=== PATIENT | female | born 1935 | race Hispanic/Latino ===

== ENCOUNTER 2017-09-16 08:48 | Emergency (ER) | payer MEDICARE, OTHER ==
[~2017-09-16 08:48] MED LIST: ESOM40CA PO; FOLI0.8T22 PO; LEVO112T7 PO; VALP250S13 PO
[2018-01-24] MEDS ORDERED: VALP250C3 PO (12:39)
[2018-01-24] MEDS ORDERED: FOLI1TAB85 PO (12:39)
[2018-01-24] MEDS ORDERED: MIDO10TA PO (12:40)
[2018-01-24] MEDS ORDERED: OMEP40CA37 PO (12:40)
== END 2017-09-16 10:55 | disposition home or self-care (01) ==
LOC: EDH 08:48
DX: S52.592A Other fractures of lower end of left radius, initial encounter for closed fracture (principal); N18.6 End stage renal disease; Z99.2 Dependence on renal dialysis; W18.39XA Other fall on same level, initial encounter; Y93.01 Activity, walking, marching and hiking; Y92.89 Other specified places as the place of occurrence of the external cause; Y99.8 Other external cause status
CPT/HCPCS: 29125; 73110; 73130

== ENCOUNTER 2018-01-25 06:41 | Day surgery (SDC) | payer MEDICARE, OTHER ==
[2018-01-24 12:33] VITALS: BP 125/61
[2018-01-24 12:37] LABS: INR 0.96 (0.85-1.15); PARTIAL THROMBOPLASTIN TIME 27.3 SEC (26.3-35.5); PROTHROMBIN TIME 10.1 SEC (9.6-11.6)
[~2018-01-25] VITALS: Ht 157.5 cm; Wt 92.0 kg
[~2018-01-25 06:41] MED LIST changes: -ESOM40CA PO; -FOLI0.8T22 PO; +FOLI1TAB85 PO; +MIDO10TA PO; +OMEP40CA37 PO; +VALP250C3 PO; -VALP250S13 PO
[2018-01-25 07:28] VITALS: BP 132/69
[2018-01-25] MEDS ORDERED: LIDOCAINE HCL 1% MDV 50ML VIAL ONE (07:47)
[2018-01-25 08:51] VITALS: BP 112/67
[2018-01-25 09:29] VITALS: BP 114/54
== END 2018-01-25 09:46 | disposition home or self-care (01) ==
LOC: DAH 06:41
PROVIDERS: ATTEND Internal Medicine Nephrology
DX: Z45.2 Encounter for adjustment and management of vascular access device (principal); E03.9 Hypothyroidism, unspecified; Z98.890 Other specified postprocedural states; N18.6 End stage renal disease; Z99.2 Dependence on renal dialysis
CPT/HCPCS: 36415; 36589; 85610; 85730; A4606; J3490; J1644